=== PATIENT | female | born 1965 | race Caucasian/White ===

== ENCOUNTER 2017-03-02 22:58 | Emergency (ER) | payer SELFPAY ==
[~2017-03-02] VITALS: Ht 154.9 cm; Wt 93.4 kg
[2017-03-02 23:11] VITALS: BP 149/98
[2017-03-02] MEDS ORDERED: HYDROCODONE/APAP 5/325MG 1 EACH TABLET ONE (23:44)
[2017-03-03] MEDS ORDERED: HYDROCODONE/APAP 5/325MG 1 EACH TABLET PO ONE
== END 2017-03-03 00:15 | disposition home or self-care (01) ==
LOC: ER 22:58
DX: S92.352A Displaced fracture of fifth metatarsal bone, left foot, initial encounter for closed fracture (principal); W54.8XXA Other contact with dog, initial encounter; Y93.K1 Activity, walking an animal; Y92.89 Other specified places as the place of occurrence of the external cause; Y99.9 Unspecified external cause status
CPT/HCPCS: 73630-TC; A4606; Z7610